=== PATIENT | female | born 1980 | race Caucasian/White ===

== ENCOUNTER 2020-07-28 18:29 | Emergency (ER) | payer SELFPAY ==
[2020-07-28 19:03] VITALS: BP 145/79; PULSE 106; RESP 14; TEMP 36.5; O2SAT 100; BMI 29.9
--- NOTE | 2020-07-28 19:59 | XRR_ITS ---
PROCEDURE INFORMATION: Exam: XR Cervical Spine, 2 or 3 Views Exam date and time: 07/28/2020 8:07 PM Age: 40 years old Clinical indication: Radicular pain (radiculopathy); Cervical region; Patient HX: Neck and left arm pain TECHNIQUE: Imaging protocol: XR of the cervical spine, 2 or 3 views. COMPARISON: No relevant prior studies available. FINDINGS: Bones/joints: There is straightening of the cervical spine and also the head is tilted to the right side. This could be due to muscle spasm. Correlation with physical examination is advised. No fracture or other acute bony abnormalities are seen. There is no other malalignment. Mild DJD is present with small calcifications in the anterior longitudinal ligament.. Soft tissues: Unremarkable. XR/XR cervical spine 3V* [id number] IMPRESSION: 1. Straightening of the cervical spine and tilting of the head may be due to pain and muscle spasm. 2. Mild DJD. 3. No acute bony abnormalities are seen.
[2020-07-28] MEDS: predniSONE 20 mg Tablet 40 MG PO (21:00)
[2020-07-28] MEDS: oxyCODONE-APAP 5-325 mg Tablet 2 TAB PO (21:00)
[2020-07-28 21:01] VITALS: BP 143/76; PULSE 87; RESP 16; O2SAT 99
--- NOTE | 2020-07-29 00:53 | ED_ITS ---
HPI - Extremity Problem General: Chief complaint: Extremity Problem,Nontraumatic Stated complaint: pain in left arm Time Seen by Provider: 07/28/20 19:39 History of Present Illness: HPI Narrative: 40-year-old female with a several day history of pain at the base of her neck radiating down her left arm. She notes that is worse when she turns her head to the left, or tilts her head back. She says that lifting the arm above her head relieves the pain. She has taken Aleve without much improvement. No fever. No headache. MD Complaint: extremity pain Onset (ago): day(s) Pain Consistency: constant Location: left and upper extremity Quality: burning and aching Radiation: distal Relieving factors: elevation Exacerbating factors: range of motion and other Associated symptoms: Deny arthralgias, chest pain, fever(s) or short of breath Review of Systems Const: Denies: fever(s), chills or body aches Card: Denies: chest pain Resp: Denies: dyspnea, productive cough or non-productive cough GI: Denies: abdominal pain, nausea or vomiting Neuro: Reports: numbness in extremities (Intermittent left upper); Denies: weakness in extremities Physical Exam Const: COMMON NORMALS: no acute distress, patient oriented x3 and alert Neck/C-Spine: COMMON NORMALS: full ROM GENERAL: Yes normal visual inspection and Yes trachea midline CERVICAL SPINE: Yes Cervical spine tenderness (Mild) and No step off deformity OTHER: Positive Spurling's on the left Chest: COMMONS NORMALS: normal inspection of the chest Resp: COMMON NORMALS: normal respiratory effort, No retractions and No use of accessory muscles Cardio: COMMON NORMALS: regular rate and regular rhythm RATE: regular rate RHYTHM: regular rhythm Neuro: COMMON NORMALS: patient oriented x3, no focal motor deficits and no sensory deficits noted SENSORIUM/ORIENTATION: Yes alert Course Vital Signs: Vital signs: Vital Signs Temperature 97.7 F 07/28/20 19:03 Pulse Rate 87 07/28/20 21:01 Respiratory Rate 16 07/28/20 21:01 Blood Pressure 143/76 07/28/20 21:01 Pulse Oximetry 99 07/28/20 21:01 MDM - Extremity (Nontraumatic) MDM Narrative: Medical decision making narrative: X-ray reveals cervical spondylosis, especially in the mid neck. She will be treated for cervical radiculopathy. Discharge Plan Discharge Patient Disposition: Home Clinical Impression: Cervical disc disorder with radiculopathy Condition: Stable Prescriptions: [place] 5-325 mg tablet 1 tab PO Q6H Qty: 7 RF: 0 Medrol (Rafael) 4 mg tablets,dose pack See Rx Instructions .ROUTE .COMPLEX Qty: 21 RF: 0 Discharge Orders: Discharge ED (Routine); Ordered 07/28/20 Ordered By: Cristian Childress Referrals: Pedro Alonso DO [Primary Care Provider] - 4-7 days Discharge Diet: Usual diet Discharge Activity: Increase activity as tolerated Patient Instructions: Cervical Radiculopathy (ED) Coding Level of Care Code ED Senior Analyst Developer for Ilan Samuels
== END 2020-07-28 21:03 | disposition home or self-care (01) ==
PROVIDERS: Emergency Provider Emergency Medicine; PCP Family Medicine
DX: M50.10 Cervical disc disorder with radiculopathy, unspecified cervical region (principal)
CPT/HCPCS: 12345; 72040; 99281; 99283; J7512